=== PATIENT | male | born 1970 | race Caucasian/White ===

== ENCOUNTER 2016-12-20 08:27 | Emergency (ER) | payer BC ==
[2016-12-20] MEDS ORDERED: Diphtheria,Pertussis(Acell),Tetanus Vaccine 0.5 ML SDV inactive IM ONE (09:08)
[2016-12-20 09:46] VITALS: BP 133/89
--- NOTE | 2016-12-20 09:57 | ER ---
HISTORY OF PRESENT ILLNESS: A 46-year-old male here with his mother. The patient injured 2 fingers on his left hand while closing an overhead garage door manually this morning. His fingertips got pinched in between two of the door panels. The patient was doing this manually, he was able to reverse it himself to take the pressure off. They noticed some bruising involving the fingernails of the third and fourth fingers on the left hand and some mild swelling. There has not been any bleeding, the skin has been intact, no other injuries. OBJECTIVE: GENERAL APPEARANCE: The patient is awake and alert. No obvious distress. He is holding an ice pack to his injured hand. VITAL SIGNS: Reviewed. Blood pressure 148/92. MUSCULOSKELETAL: Examining the left hand reveals mild bruising below the proximal nails of the third and fourth fingers. There is no swelling of the nails. This is not yet consistent with a subungual hematoma. There is a small amount of swelling around the proximal end of the cuticle areas as well of the same fingers. Capillary refill involving the finger tips of the injured fingers are good. LAB AND X-RAY: X-ray of the left hand was obtained, there is no fracture or acute bony abnormality. DIAGNOSIS: Contusion injuries to the third and fourth fingers, left hand. TREATMENT PLAN: The patient is to use [id number] medication, ibuprofen alternating with Tylenol as needed. He is to continue to ice it frequently today and keep it elevated as much as possible. He refused eusebio-taping today. Followup is p.r.n. If his symptoms get worse involving the nails, this could be a potential hematoma. If this happens, they are to bring him back to the clinic for a recheck. The patient and his mother agree with the treatment plan and have no further questions. IGGY/MODL /[id number]
--- NOTE | 2016-12-20 17:11 | CR ---
DATE OF SERVICE: 12/20/16 CLINICAL DATA: finger injury. LEFT HAND: No acute fracture or dislocation. No lytic or blastic bone lesions. IMPRESSION: Negative exam. [id number] MTDD
== END 2016-12-20 09:40 | disposition home or self-care (01) ==
LOC: LB.ED 08:27
DX: S60.032A Contusion of left middle finger without damage to nail, initial encounter (principal); S60.042A Contusion of left ring finger without damage to nail, initial encounter; W23.0XXA Caught, crushed, jammed, or pinched between moving objects, initial encounter
CPT/HCPCS: 73130-LT; 90715; 99283

== ENCOUNTER 2020-04-19 20:30 | Emergency (ER) | payer BC | END 2020-04-19 21:15 | disposition left against medical advice (07) | LOC: LB.ED 20:30 | DX: Z53.21 Procedure and treatment not carried out due to patient leaving prior to being seen by health care provider (principal); Z20.828 Contact with and (suspected) exposure to other viral communicable diseases | CPT/HCPCS: U0002 ==